=== PATIENT | female | born 1995 | race Caucasian/White ===

== ENCOUNTER 2016-04-22 11:43 | Emergency (ER) | payer OTHER ==
[2016-04-22] MEDS ORDERED: Lidocaine 1% 10 MG/ML - 20 ML VIAL SUBCUT ONE (11:52)
[2016-04-22 12:09] VITALS: RESP 18; TEMP 96.7
[2016-04-22] MEDS ORDERED: BACITRACIN 0.9 GM PACKET OINT TOPICAL ONE (12:14)
--- NOTE | 2016-04-22 12:45 | PDOC ---
Lower Extremity Problem HPI - General Chief Complaint: General Medical Stated Complaint: INGROWN TOENAIL Date Seen by Provider: 04/22/16 Time Seen by Provider: 11:47 Source: POSITIVE: Patient Exam Limitations: POSITIVE: No limitations Nurse's Notes Reviewed & Considered: Yes - History of Present Illness Initial Comments: The patient is a 21 year old female. She states that for the past week she has had a painful ingrown toenail to the medial aspect of her right great toe. She called her primary care provider with regard to this problem and her primary care provider advised her to come to the emergency room for treatment. No allergies. She is on no medications except she has been taking Tylenol for discomfort. No local drainage. No fevers or chills. Body Location Affected: REPORTS: Lower Extremity (R) Timing: REPORTS: Gradual, Getting Worse Duration: >1 week (Approximately one week) Severity: Moderate Recent Injury: REPORTS: No Context of Injury: DENIES: Fall, Twist, Direct Blow, Incision, Burn, Crush, Stab , Prolonged Pressure on Ext, Other Location at Time of Onset: REPORTS: Home Quality: REPORTS: "Pain", Throbbing Modifying Factors: REPORTS: Other (Direct palpation of distal aspect of right great toe) Associated Symptoms: DENIES: Chest Pain, Shortness of Breath, Rapid Heart Rate, Fainting, Other Similar Symptoms Previously: Yes Recent Care Received: REPORTS: Denies Any Prior Injuries Related to Current Complaint?: No - Patient Home Medications Home Medications: Home Medications Acetaminophen [Tylenol] 500 mg PO PRN PRN 04/22/16 - Patient Allergies Allergies/Adverse Reactions: Allergies Allergy/AdvReac Type Severity Reaction Status Date / Time No Known Drug Allergies Allergy NOT Verified 04/22/16 11:49 APPLICABLE Past Medical History - heen HEENT History: Denies History Cardiovascular History: Denies History Respiratory History: Denies History Gastrointestinal History: Denies History Genitourinary History: Denies History Endocrine History: Denies History Musculoskeletal History: Denies History Prosthesis or Implant: No Neurological History: Denies History, Frequent Headaches Blood Disorders: Anemia Psychiatric History: Denies History History of Sexually Transmitted Diseases: No LMP: 2.5 WEEKS AGO Cancer History: Denies History In Past Year Been Physically Harmed or Verbally Threatened: No History of MDRO: No History of Other Communicable Diseases: No Tobacco Use: Current Every Day Smoker Alcohol Use: Rarely Substance Use Type: None Previous Surgical History: Yes Type / Date of Surgery: MULTIPLE I&D AXILLA ABSCESS / [place] teeth/ TUBAL Anesthesia Reactions: No Malignant Hyperthermia: No Significant Family History: Asthma, Cancer Past Medical History Reviewed: Reviewed - No Changes ROS - Limitations ROS Limitations: No Limitations Constitution: REPORTS: Denies Symptoms Cardiovascular: REPORTS: Denies Cardiac Symptoms Respiratory: REPORTS: Denies Resp Symptoms Neurological: REPORTS: Denies Neuro Symptoms Gastrointestinal: REPORTS: Denies GI Symptoms Endocrine: REPORTS: Denies Symptoms Musculoskeletal: REPORTS: Other (Pain medial aspect of distal portion of right great toe with ingrowing of toenail and some local erythema) Genitourinary: REPORTS: Denies Symptoms Eyes: REPORTS: Denies Symptoms ENT: REPORTS: Denies Symptoms Skin: REPORTS: Other (Local erythema and swelling at site of ingrown toenail, medial aspect of distal right great toe) Lympathic: REPORTS: Denies Lympathic Symptoms Immunologic: POSITIVE: Denies Symptoms Psychiatric: POSITIVE: Denies Psych Symptoms Lower Ext Problem Exam - General Appearance General Appearance: POSITIVE: Alert, Cooperative, No Acute Distress, No Evidence of Trauma - Extremities Lower Extremity: POSITIVE: No Pedal Edema, Tenderness, Other (Ingrown toenail, medial aspect right great toe with some surrounding swelling and erythema; no drainage) Joint Exam: POSITIVE: Joints Normal, Normal ROM, Normal Gait, Normal Weight Bearing Vascular: POSITIVE: No Vascular Compromise, Full Pulses, Equal Pulses - Neuro / Psych Neuro/Psych: POSITIVE: Sensation Normal, Motor Normal, Oriented to Person, Oriented to Place, Oriented to Time, applications specialist Normal as Tested, Mood Appropriate, Affect Appropriate - Neck / Back / Pelvis Back / Neck: POSITIVE: Normal Inspection, Normal ROM Pelvis: Stable by compression - Skin Skin: POSITIVE: Erythema (Around sides of ingrown toenail right great toe) - Respiratory / CVS Peripheral Pulses: Radial (R): 2+, Radial (L): 2+, Dorsalis-pedis (R): 2+, Dorsalis-pedis (L): 2+ Images - Lower Extremities Feet: 1 - Ingrown toenail Procedure - Additional Procedures Additional Procedures: Other (After digital block with 1% lidocaine the medial one third of the toenail of the right great toe was sterilely avulsed and nailbed was curetted. Exposed nailbed lubricated with bacitracin ointment and sterile Band-Aid was placed.) Lower Ext Problem Progress - Patient's Progress Pain Medication Addressed: POSITIVE: Yes (Recommended Advil or Tylenol) School/Work Release Addressed: POSITIVE: Yes (Recommended reduced weightbearing and elevation of right foot for 24 hours) Re-Examine Time: 12:20 Re-Examine Comment: Partial nail avulsion, right great toe, complete.. Patient tolerated procedure well. Status: POSITIVE: Improved, Re-Examined - Consult Counseled: POSITIVE: Patient, RE: DX, RE: Need for F/U Patient Care Time - Estimated PCT Patient Care Time (In Minutes): 30 Vital Signs - Recent Vital Signs Vital Signs: Vital Signs (Last 8 hours) Temp Pulse Resp BP Pulse Ox 04/22/16 11:45 96.7 F L 93 18 154/94 98 - VS Reviewed Vital Signs Reviewed: Yes Discharge Clinical Impression: Ingrown toenail without infection Discharge Disposition: Discharged to Home Condition: Fair Patient Instructions Given at Discharge: Ingrown Nail (ED) Additional Instructions: Elevate foot and reduce weightbearing today. Apply bacitracin or Neosporin ointment to the exposed nailbed twice daily. When the nail starts to grow out, place small pieces of cotton or gauze at the edge of the nail to discourage ingrowing of the nail. Advil or Tylenol for discomfort. Return here anytime if condition worsens. Follow-up with your primary care provider. Follow Up With: GIFTY RAMIREZ [Primary Care Provider] - (Instructions as above. Return here anytime if condition worsens. Follow-up with your primary care provider.)
== END 2016-04-22 12:27 | disposition home or self-care (01) ==
LOC: ER 11:43
DX: L60.0 Ingrowing nail (principal); M79.674 Pain in right toe(s)
CPT/HCPCS: 11730; 99282; J2001

== ENCOUNTER 2016-05-14 14:30 | Emergency (ER) | payer OTHER ==
[2016-05-14] MEDS ORDERED: LIDOCAINE 2%/ EPI 1:200,000 - 20 ML VIAL IVP ONE (14:42)
--- NOTE | 2016-05-14 14:44 | PDOC ---
Gen Adult / Medical Screen HPI - General Chief Complaint: General Medical Stated Complaint: RIGHT ARMPIT CYST WITH PAIN TO CHEST Date Seen by Provider: 05/14/16 Time Seen by Provider: 14:42 Source: POSITIVE: Patient Exam Limitations: POSITIVE: No limitations Nurse's Notes Reviewed & Considered: Yes - Indicators Temperature Between 95 and 101 Degrees: Yes Respirations Between 12 and 20: Yes Blood Pressure Between 100-165 (sys) and 60-100 (chanel): Yes Pulse Range Between 60-105 (100 for age > 60 years): Yes Severe Pain (Greater than 5/10 Reported): Yes Chest or Abdominal Pain: No Inability to Walk: No Pt Reports Active High Risk Cond. (TB/Hepatitis/HIV/Chemo): No Abnormal Mental Status: No - History of Present Illness Initial Comments: Patient comes in today with an abscess of the right axilla. Patient with history of hidradenitis, developed a fluctuant mass in her right axilla that began to drain yesterday. Today. She denies any fever chills or sweats, nausea vomiting or diarrhea, no hematuria dysuria, no headaches, no chest pain shortness of breath or cough. Body Location Affected: REPORTS: Upper Extremity (R) (Axilla) Timing: REPORTS: Gradual, Getting Worse Duration: >24 hours Similar Symptoms Previously: Yes Recent Care Received: REPORTS: Denies Any Prior Injuries Related to Current Complaint?: No - Patient Home Medications Home Medications: Home Medications Acetaminophen [Tylenol] 500 mg PO PRN PRN 04/22/16 Acetaminophen/Diphenhydramine [Tylenol Pm Ex-Strength Caplet] 1 each PO BEDTIME 05/14/16 - Patient Allergies Allergies/Adverse Reactions: Allergies Allergy/AdvReac Type Severity Reaction Status Date / Time No Known Drug Allergies Allergy NOT Verified 05/14/16 14:40 APPLICABLE Past Medical History - heen HEENT History: Denies History Cardiovascular History: Denies History Respiratory History: Denies History Gastrointestinal History: Denies History Genitourinary History: Denies History Endocrine History: Denies History Musculoskeletal History: Denies History Prosthesis or Implant: No Neurological History: Denies History, Frequent Headaches Blood Disorders: Anemia Psychiatric History: Denies History History of Sexually Transmitted Diseases: No Cancer History: Denies History History of MDRO: No History of Other Communicable Diseases: No Alcohol Use: Rarely Substance Use Type: None Previous Surgical History: Yes Type / Date of Surgery: MULTIPLE I&D AXILLA ABSCESS / [place] teeth/ TUBAL Anesthesia Reactions: No Malignant Hyperthermia: No Significant Family History: Asthma, Cancer ROS - Limitations ROS Limitations: No Limitations Constitution: REPORTS: Denies Symptoms Cardiovascular: REPORTS: Denies Cardiac Symptoms Respiratory: REPORTS: Denies Resp Symptoms Neurological: REPORTS: Denies Neuro Symptoms Gastrointestinal: REPORTS: Denies GI Symptoms Endocrine: REPORTS: Denies Symptoms Musculoskeletal: REPORTS: Denies MS Symptoms Genitourinary: REPORTS: Denies Symptoms Eyes: REPORTS: Denies Symptoms ENT: REPORTS: Denies Symptoms Skin: REPORTS: Other (Abscess of the right axilla with decreased ability to extend her arm secondary to pain.) Lympathic: REPORTS: Denies Lympathic Symptoms Immunologic: POSITIVE: Denies Symptoms Psychiatric: POSITIVE: Denies Psych Symptoms Gen Adult/Medical Screen Exam - General Appearance General Appearance: POSITIVE: Alert, Cooperative, No Acute Distress, No Evidence of Trauma - HEENT HEENT: POSITIVE: Head Inspection Nml, Eyes Inspection Nml, Ears Inspection Nml, Nose Inspection Nml, PERRL, EOMI - Pupils Pupil Size: 4 mm: Bilateral - Neck Neck: POSITIVE: Normal Inspection - Respiratory Respiratory: POSITIVE: No Respiratory Distress, Breath Sounds Normal, Chest Non- Tender - Cardiovascular Cardiovascular: POSITIVE: Regular Rate & Rhythm, No Murmur, No Gallop, PMI Normal - Abdomen Abdomen: Soft: (All Quadrants), Normal Bowel Sounds: (All Quadrants), Denies Tenderness: (All Quadrants) - Neurological / Psychological Mental Status: POSITIVE: Mood Normal, Affect Normal Orientation: POSITIVE: Oriented x 3 - Skin Skin: POSITIVE: Normal Color, Other (Abscess with erythema and swelling of the right axilla.) - Extremities Extremity: Non-Tender: (All Extremities), Normal ROM: (LLE), (RLE), (LUE) ( decreased range of motion in the right shoulder secondary to pain from her abscess.), Normal Inspection: (LUE), (RLE), (LLE), (All Extremities) Procedures - Laceration/Wound Repair Did patient have a laceration repair: No - Incision and Drainage Site: right axilla Skin Prep: Betadine Prep Local Anesthesia Used - Indicate Amt Used in Comment: Lidocaine 2%: Yes (2 cc) Blade Size: 11 I & D Procedure: betadine prep I&D Treatment: Small Amount, Probed to Brk Loculations, Packed w/ Gauze, Obtained Cultures, Gram Stains Obtained Gen Adlt/Medical Scrn Progress - Patient's Progress Status: POSITIVE: Improved MDM / ED Course: The patient was examined. After obtaining informed verbal consent her skin in the right axilla was prepped with Betadine and then 2% lidocaine was infiltrated into the abscess. Skin was incised with an 11 blade. Purulent material was obtained. Hemostatic forceps were utilized to break up loculations. Wound was irrigated with 4 ml of 2% lidocaine. A quarter-inch iodoform gauze was placed as a wick, gauze was placed over this and secured with Coban. Patient received double strength Bactrim, prescription for Bactrim for 10 days, and a prescription for [place]. She has instructions to follow up with her doctor. Cultures and gram stains were obtained and labs are pending. Home in improved condition - Consult Counseled: POSITIVE: Patient, RE: DX, RE: Need for F/U Patient Care Time - Estimated PCT Patient Care Time (In Minutes): 15 Vital Signs - VS Reviewed Vital Signs Reviewed: Yes Discharge Clinical Impression: Cutaneous abscess, Abscess Discharge Disposition: Discharged to Home Condition: Good Patient Instructions Given at Discharge: Abscess (ED) Additional Instructions: Plan discharge with prescription for Bactrim to be taken twice a day for 10 days please take all of the medication. In addition to bend discharged with a prescription for [place] for pain relief. Please follow-up with your primary care doctor.
[2016-05-14] MEDS ORDERED: SULFAMETHOXAZOLE/TRIMETHOPRIM 800/160 MG TABLET PO ONE (15:12)
[2016-05-14 16:09] VITALS: RESP 17; TEMP 96.5
== END 2016-05-14 15:33 | disposition home or self-care (01) ==
LOC: ER 14:30
DX: L02.411 Cutaneous abscess of right axilla (principal)
CPT/HCPCS: 10060; 87070; 87075; 87077; 87185; 87186; 87205; 99282